=== PATIENT | female | born 1975 | race African-American/Black ===

== ENCOUNTER 2018-07-09 19:54 | Inpatient (IN) | payer OTHER ==
[2018-07-10] MEDS ORDERED: HYDROCODONE/APAP (5/325) TAB PO
[2018-07-10] MEDS ORDERED: ALBUTEROL/IPRATROPIUM (NEB) 3 ML AMP HHN
[2018-07-10] MEDS ORDERED: ONDANSETRON 4 MG INJ IV
[2018-07-10] MEDS ORDERED: NACL 0.9% 3 ML SYG IV
[2018-07-10] MEDS ORDERED: GLUCOSE GEL 15 GRAM TUBE PO ×2 (04:00)
[2018-07-10] MEDS ORDERED: GLUCOSE GEL 15 GRAM TUBE BUCCAL (04:00)
[2018-07-10] MEDS ORDERED: DEXTROSE 50% 50 ML SYRINGE IV ×2 (04:00)
[2018-07-10] MEDS ORDERED: GLUCAGON 1 MG INJ IM (04:00)
[2018-07-10 06:08] LABS: ADD MAN DIFF? NO; BASOPHILS % 0.4 % (0.0-2.0); EOSINOPHILS # 0.3 10^3/ul (0.0-0.5); EOSINOPHILS % 2.8 % (0.0-7.0); HEMATOCRIT 38.1 % (37.0-47.0); HEMOGLOBIN 11.5 g/dl (12.0-16.0); LYMPHOCYTES # 1.3 10^3/ul (0.8-2.9); LYMPHOCYTES % 13.4 % (15.0-51.0); MEAN CORPUSCULAR HEMOGLOBIN 27.4 pg (29.0-33.0); MEAN CORPUSCULAR HGB CONC 30.2 g/dl (32.0-37.0); MEAN CORPUSCULAR VOLUME 90.7 fl (82.0-101.0); MEAN PLATELET VOLUME 11.2 fl (7.4-10.4); MONOCYTES % 11.1 % (0.0-11.0); NEUTROPHIL # 6.7 10^3/ul (1.6-7.5); NEUTROPHILS % 71.8 % (39.0-77.0); PLATELET COUNT 189 10^3/UL (140-415); RED CELL DISTRIBUTION WIDTH 15.2 % (11.5-14.5)
[2018-07-10 06:08] LABS: WHITE BLOOD COUNT 9.3 10^3/ul (4.8-10.8)
[2018-07-10 06:51] LABS: ALANINE AMINOTRANSFERASE 29 IU/L (13-69); ALBUMIN 3.2 g/dl (3.3-4.9); ALBUMIN/GLOBULIN RATIO 1.18; ALKALINE PHOSPHATASE 60 IU/L (42-121); ASPARTATE AMINO TRANSFERASE 23 IU/L (15-46); BILIRUBIN,INDIRECT 0.5 mg/dl (0-1.1); BILIRUBIN,TOTAL 0.5 mg/dl (0.2-1.3); BLOOD UREA NITROGEN 24 mg/dl (7-20); CALCIUM 8.9 mg/dl (8.4-10.2); CHLORIDE 95 mmol/L (97-110); CREATININE 1.01 mg/dl (0.44-1.00); Estimated GFR > 60 mL/min (>60); GLUCOSE 107 mg/dl (70-220); POTASSIUM 3.7 mmol/L (3.5-5.1); SODIUM 141 mmol/L (135-144); TOTAL PROTEIN 5.9 g/dl (6.1-8.1)
[2018-07-10 06:59] LABS: ANION GAP 6 (5-13)
[2018-07-10 07:06] LABS: CARBON DIOXIDE 40 mmol/L (21-31)
[2018-07-10 07:41] LABS: HEMOGLOBIN A1C 6.1 % (0-5.9)
[2018-07-10] MEDS: metFORMIN 500 MG TAB PO (07:57)
[2018-07-10] MEDS ORDERED: HEPARIN 5,000 UNIT/0.5 ML VIAL ×2 (08:14→20:11)
[2018-07-10] MEDS: LISINOPRIL 20 MG TAB PO (08:45)
[2018-07-10] MEDS: HEPARIN 5,000 UNIT/1 ML VIAL SC ×2 (08:49→20:25)
[2018-07-10] MEDS: MAGNESIUM OXIDE 400 MG TAB PO (20:15)
[2018-07-10] MEDS: ATORVASTATIN 10 MG TAB PO (20:15)
[2018-07-10] MEDS ORDERED: NON-FORMULARY/PATIENT OWN MED (Lovastatin 40 MG) PO (21:00)
[2018-07-11 08:11] LABS: ADD MAN DIFF? NO
[2018-07-11 08:18] LABS: ABNORMAL IP MESSAGE 1; BASOPHILS % 0.5 % (0.0-2.0); EOSINOPHILS # 0.3 10^3/ul (0.0-0.5); HEMATOCRIT 38.7 % (37.0-47.0); LYMPHOCYTES # 0.9 10^3/ul (0.8-2.9); LYMPHOCYTES % 9.9 % (15.0-51.0); MEAN CORPUSCULAR HEMOGLOBIN 26.6 pg (29.0-33.0); MEAN CORPUSCULAR HGB CONC 28.4 g/dl (32.0-37.0); MEAN CORPUSCULAR VOLUME 93.7 fl (82.0-101.0); MEAN PLATELET VOLUME 11.6 fl (7.4-10.4); MONOCYTES % 11.4 % (0.0-11.0); NEUTROPHIL # 6.5 10^3/ul (1.6-7.5); NEUTROPHILS % 74.9 % (39.0-77.0); PLATELET COUNT 189 10^3/UL (140-415); RED BLOOD COUNT 4.13 10^6/ul (4.20-5.40); RED CELL DISTRIBUTION WIDTH 14.9 % (11.5-14.5)
[2018-07-11 08:18] LABS: WHITE BLOOD COUNT 8.7 10^3/ul (4.8-10.8)
[2018-07-11] MEDS ORDERED: HEPARIN 5,000 UNIT/0.5 ML VIAL ×2 (08:22→19:54)
[2018-07-11] MEDS: LISINOPRIL 20 MG TAB PO (08:26)
[2018-07-11] MEDS: MAGNESIUM OXIDE 400 MG TAB PO ×2 (08:26→20:07)
[2018-07-11] MEDS: ASPIRIN (EC) 81 MG TAB PO (08:26)
[2018-07-11 08:27] LABS: POSITIVE DIFF @See below
[2018-07-11] MEDS: HEPARIN 5,000 UNIT/1 ML VIAL SC ×2 (08:31→20:11)
[2018-07-11 08:50] LABS: TROPONIN-I 0.024 ng/ml (0.000-0.120)
[2018-07-11 08:51] LABS: BLOOD UREA NITROGEN 25 mg/dl (7-20); CALCIUM 9.2 mg/dl (8.4-10.2); CHLORIDE 96 mmol/L (97-110); CREATININE 0.98 mg/dl (0.44-1.00); Estimated GFR > 60 mL/min (>60); GLUCOSE 91 mg/dl (70-220); INR 1.08; MAGNESIUM 1.9 mg/dl (1.7-2.5); PHOSPHORUS 4.3 mg/dl (2.5-4.9); POTASSIUM 4.3 mmol/L (3.5-5.1); PROTIME 14.1 Sec (11.9-14.9); PT RATIO 1.1; SODIUM 143 mmol/L (135-144)
[2018-07-11 08:55] LABS: CHOLESTEROL 117 mg/dl (100-200)
[2018-07-11 08:55] LABS: CHOL/HDL RATIO 4.5 RATIO; HDL CHOLESTEROL 26 mg/dl (34-88); LDL CHOLESTEROL,CALCULATED 77 mg/dl; TRIGLYCERIDES 72 mg/dl (0-149)
[2018-07-11] MEDS ORDERED: ALBUTEROL HFA 8 GM INHALER INH (09:00)
[2018-07-11 09:58] LABS: ANION GAP 8 (5-13)
[2018-07-11 10:02] LABS: CARBON DIOXIDE 39 mmol/L (21-31)
[2018-07-11] MEDS: FUROSEMIDE 20 MG INJ IV (18:24)
[2018-07-11] MEDS: ATORVASTATIN 10 MG TAB PO (20:07)
[2018-07-12] MEDS: FUROSEMIDE 20 MG INJ IV ×2 (05:40→18:14)
[2018-07-12 07:10] LABS: ABNORMAL IP MESSAGE 1; ADD MAN DIFF? NO; BASOPHILS % 0.4 % (0.0-2.0); EOSINOPHILS # 0.2 10^3/ul (0.0-0.5); EOSINOPHILS % 2.3 % (0.0-7.0); HEMATOCRIT 38.8 % (37.0-47.0); HEMOGLOBIN 11.1 g/dl (12.0-16.0); LYMPHOCYTES # 0.9 10^3/ul (0.8-2.9); LYMPHOCYTES % 10.4 % (15.0-51.0); MEAN CORPUSCULAR HEMOGLOBIN 26.7 pg (29.0-33.0); MEAN CORPUSCULAR HGB CONC 28.6 g/dl (32.0-37.0); MEAN CORPUSCULAR VOLUME 93.5 fl (82.0-101.0); MEAN PLATELET VOLUME 11.3 fl (7.4-10.4); MONOCYTES % 11.2 % (0.0-11.0); NEUTROPHIL # 6.8 10^3/ul (1.6-7.5); NEUTROPHILS % 75.5 % (39.0-77.0); PLATELET COUNT 157 10^3/UL (140-415); RED BLOOD COUNT 4.15 10^6/ul (4.20-5.40)
[2018-07-12 07:15] LABS: POSITIVE DIFF @See below
[2018-07-12 07:26] LABS: Allen Test ACCEPTAB; Arterial Base Excess 11.8 mmol/L (-3.0-3); Arterial COHb 1.3 % (0.0-3.0); Arterial Fraction of Oxyhgb 95.4 % (93.0-99.0); Arterial HCO3 41.3 mmol/L (22.0-26.0); Arterial MetHb 0.4 % (0.0-1.5); Arterial pCO2 83.2 mmhg (35-45); MODE NASAL CANNULA; Site Right Radial
[2018-07-12 07:44] LABS: BLOOD UREA NITROGEN 25 mg/dl (7-20); CHLORIDE 95 mmol/L (97-110); CREATININE 0.93 mg/dl (0.44-1.00); Estimated GFR > 60 mL/min (>60); GLUCOSE 103 mg/dl (70-220); POTASSIUM 4.2 mmol/L (3.5-5.1); SODIUM 144 mmol/L (135-144)
[2018-07-12 07:46] LABS: PHOSPHORUS 4.1 mg/dl (2.5-4.9)
[2018-07-12 07:46] LABS: MAGNESIUM 2.1 mg/dl (1.7-2.5)
[2018-07-12] MEDS ORDERED: HEPARIN 5,000 UNIT/0.5 ML VIAL ×2 (08:06→19:50)
[2018-07-12 08:08] LABS: ANION GAP 6 (5-13)
[2018-07-12 08:10] LABS: CARBON DIOXIDE 43 mmol/L (21-31)
[2018-07-12] MEDS: THIAMINE 100 MG TAB PO (08:16)
[2018-07-12] MEDS: MAGNESIUM OXIDE 400 MG TAB PO ×2 (08:16→20:23)
[2018-07-12] MEDS: LISINOPRIL 20 MG TAB PO (08:16)
[2018-07-12] MEDS: ASPIRIN (EC) 81 MG TAB PO (08:16)
[2018-07-12] MEDS: HEPARIN 5,000 UNIT/1 ML VIAL SC ×2 (08:21→20:28)
[2018-07-12 08:58] LABS: ANISOCYTOSIS 3+ (0-0); BAND NEUTROPHILS #M 0.5 10^3/ul (0.0-0.6); BAND NEUTROPHILS % (M) 6 % (0-4); BASOPHILS % (M) 1 % (0-2); EOSINOPHILS % (M) 3 % (0-7); HYPOCHROMASIA 3+ (0-0); LYMPHOCYTES #M 0.9 10^3/ul (0.8-2.9); LYMPHOCYTES % (M) 10 % (15-51); METAMYELOCYTES %M 1 % (0-0); MICROCYTOSIS 3+ (0-0); MONOCYTE #M 0.5 10^3/ul (0.3-0.9); MONOCYTES % (M) 6 % (0-11); PLATELET ESTIMATE NORMAL; POIKILOCYTOSIS 3+ (0-0); POLYCHROMASIA 1+ (0-0); SEG NEUT #M 6.6 10^3/ul (1.6-7.5); SEGMENTED NEUTROPHILS (M) % 73 % (39-77); SMUDGE%M 2 % (0-0)
[2018-07-12] MEDS: ATORVASTATIN 10 MG TAB PO (20:19)
[2018-07-12 23:59] LABS: AADO2 Arterial 84.1 mmHg (7.0-24.0); Allen Test ACCEPTAB; Arterial Base Excess 14.5 mmol/L (-3.0-3); Arterial COHb 0.4 % (0.0-3.0); Arterial Fraction of Oxyhgb 96.4 % (93.0-99.0); Arterial HCO3 44.4 mmol/L (22.0-26.0); Arterial MetHb 0.2 % (0.0-1.5); Arterial pCO2 90.1 mmhg (35-45); Blood Gas IEPAP 20/5; Blood Gas PS 15; MODE MASK - BIPAP; Site Right Radial
[2018-07-13] MEDS: FUROSEMIDE 20 MG INJ IV ×2 (05:22→18:34)
[2018-07-13 08:49] LABS: Allen Test ACCEPTAB; Arterial Base Excess 12.5 mmol/L (-3.0-3); Arterial Blood Gas Oxygen Sat 94.3 mmHG (95.0-98.0); Arterial COHb 0.7 % (0.0-3.0); Arterial Fraction of Oxyhgb 93.5 % (93.0-99.0); Arterial HCO3 42.2 mmol/L (22.0-26.0); Arterial MetHb 0.1 % (0.0-1.5); Blood Gas IEPAP 20/5; Blood Gas PS 15; MODE MASK - BIPAP; Site Right Radial
[2018-07-13] MEDS ORDERED: HEPARIN 5,000 UNIT/0.5 ML VIAL ×2 (09:24→20:16)
[2018-07-13] MEDS: ASPIRIN (EC) 81 MG TAB PO (09:28)
[2018-07-13] MEDS: THIAMINE 100 MG TAB PO (09:28)
[2018-07-13] MEDS: MAGNESIUM OXIDE 400 MG TAB PO ×2 (09:29→20:21)
[2018-07-13] MEDS: LISINOPRIL 20 MG TAB PO (09:29)
[2018-07-13 09:30] LABS: BLOOD UREA NITROGEN 23 mg/dl (7-20); CHLORIDE 92 mmol/L (97-110); CREATININE 0.86 mg/dl (0.44-1.00); Estimated GFR > 60 mL/min (>60); GLUCOSE 86 mg/dl (70-220); MAGNESIUM 2.1 mg/dl (1.7-2.5); POTASSIUM 4.2 mmol/L (3.5-5.1); SODIUM 142 mmol/L (135-144)
[2018-07-13 09:39] LABS: ANION GAP 5 (5-13); CARBON DIOXIDE 45 mmol/L (21-31)
[2018-07-13 09:41] LABS: FREE T4 (FREE THYROXINE) 1.09 ng/dl (0.64-1.79)
[2018-07-13] MEDS: HEPARIN 5,000 UNIT/1 ML VIAL SC ×2 (09:44→20:31)
[2018-07-13 09:54] LABS: TRIIODOTHYRONINE 0.49 ng/ml (0.97-1.69)
[2018-07-13] MEDS: ACETAMINOPHEN 325 MG TAB PO (15:24)
[2018-07-13] MEDS: ATORVASTATIN 10 MG TAB PO (20:20)
[2018-07-14] MEDS: FUROSEMIDE 20 MG INJ IV ×2 (05:36→18:23)
[2018-07-14 07:21] LABS: ADD MAN DIFF? NO
[2018-07-14 07:26] LABS: WHITE BLOOD COUNT 8.4 10^3/ul (4.8-10.8)
[2018-07-14 07:26] LABS: ABNORMAL IP MESSAGE 1; BASOPHILS % 0.4 % (0.0-2.0); EOSINOPHILS # 0.3 10^3/ul (0.0-0.5); EOSINOPHILS % 3.2 % (0.0-7.0); HEMATOCRIT 38.5 % (37.0-47.0); LYMPHOCYTES % 11.8 % (15.0-51.0); MEAN CORPUSCULAR HGB CONC 28.6 g/dl (32.0-37.0); MEAN CORPUSCULAR VOLUME 94.4 fl (82.0-101.0); MEAN PLATELET VOLUME 11.3 fl (7.4-10.4); MONOCYTE # 1.1 10^3/ul (0.3-0.9); MONOCYTES % 12.8 % (0.0-11.0); NEUTROPHILS % 71.4 % (39.0-77.0); PLATELET COUNT 171 10^3/UL (140-415); RED BLOOD COUNT 4.08 10^6/ul (4.20-5.40); RED CELL DISTRIBUTION WIDTH 14.6 % (11.5-14.5)
[2018-07-14 07:29] LABS: POSITIVE DIFF @See below
[2018-07-14 07:49] LABS: MAGNESIUM 2.2 mg/dl (1.7-2.5)
[2018-07-14 07:49] LABS: PHOSPHORUS 3.8 mg/dl (2.5-4.9)
[2018-07-14 08:01] LABS: BLOOD UREA NITROGEN 21 mg/dl (7-20); CHLORIDE 93 mmol/L (97-110); CREATININE 0.84 mg/dl (0.44-1.00); Estimated GFR > 60 mL/min (>60); GLUCOSE 114 mg/dl (70-220); POTASSIUM 4.3 mmol/L (3.5-5.1); SODIUM 145 mmol/L (135-144)
[2018-07-14 08:14] LABS: ANION GAP 8 (5-13); CARBON DIOXIDE 44 mmol/L (21-31)
[2018-07-14] MEDS ORDERED: HEPARIN 5,000 UNIT/0.5 ML VIAL ×2 (08:25→20:58)
[2018-07-14] MEDS: ALTEPLASE (CATHFLO) 2 MG INJ CATHETER (08:34)
[2018-07-14] MEDS: LISINOPRIL 20 MG TAB PO (08:35)
[2018-07-14] MEDS: MAGNESIUM OXIDE 400 MG TAB PO ×2 (08:36→21:22)
[2018-07-14] MEDS: ASPIRIN (EC) 81 MG TAB PO (08:36)
[2018-07-14] MEDS: THIAMINE 100 MG TAB PO (08:36)
[2018-07-14] MEDS: HEPARIN 5,000 UNIT/1 ML VIAL SC ×2 (08:48→21:25)
[2018-07-14] MEDS: ATORVASTATIN 10 MG TAB PO (21:22)
[2018-07-15] MEDS: FUROSEMIDE 20 MG INJ IV ×2 (06:31→18:51)
[2018-07-15 08:29] LABS: ADD MAN DIFF? NO
[2018-07-15 08:38] LABS: WHITE BLOOD COUNT 8.1 10^3/ul (4.8-10.8)
[2018-07-15 08:38] LABS: ABNORMAL IP MESSAGE 1; BASOPHIL # 0.1 10^3/ul (0.0-0.1); BASOPHILS % 0.7 % (0.0-2.0); EOSINOPHILS # 0.3 10^3/ul (0.0-0.5); EOSINOPHILS % 3.7 % (0.0-7.0); HEMATOCRIT 39.3 % (37.0-47.0); HEMOGLOBIN 10.9 g/dl (12.0-16.0); LYMPHOCYTES # 1.2 10^3/ul (0.8-2.9); LYMPHOCYTES % 14.6 % (15.0-51.0); MEAN CORPUSCULAR HEMOGLOBIN 26.3 pg (29.0-33.0); MEAN CORPUSCULAR HGB CONC 27.7 g/dl (32.0-37.0); MEAN CORPUSCULAR VOLUME 94.9 fl (82.0-101.0); MEAN PLATELET VOLUME 11.6 fl (7.4-10.4); MONOCYTES % 12.8 % (0.0-11.0); NEUTROPHIL # 5.5 10^3/ul (1.6-7.5); PLATELET COUNT 175 10^3/UL (140-415); RED BLOOD COUNT 4.14 10^6/ul (4.20-5.40); RED CELL DISTRIBUTION WIDTH 14.6 % (11.5-14.5)
[2018-07-15 08:56] LABS: POSITIVE DIFF @See below
[2018-07-15] MEDS ORDERED: HEPARIN 5,000 UNIT/0.5 ML VIAL ×2 (08:56→21:39)
[2018-07-15 09:00] LABS: MAGNESIUM 2.3 mg/dl (1.7-2.5)
[2018-07-15 09:00] LABS: PHOSPHORUS 3.6 mg/dl (2.5-4.9)
[2018-07-15] MEDS: ASPIRIN (EC) 81 MG TAB PO (09:06)
[2018-07-15] MEDS: MAGNESIUM OXIDE 400 MG TAB PO ×2 (09:06→21:44)
[2018-07-15] MEDS: LISINOPRIL 20 MG TAB PO (09:06)
[2018-07-15] MEDS: THIAMINE 100 MG TAB PO (09:06)
[2018-07-15] MEDS: HEPARIN 5,000 UNIT/1 ML VIAL SC ×2 (09:16→21:44)
[2018-07-15 09:23] LABS: BLOOD UREA NITROGEN 20 mg/dl (7-20); CALCIUM 9.3 mg/dl (8.4-10.2); CHLORIDE 91 mmol/L (97-110); CREATININE 0.84 mg/dl (0.44-1.00); Estimated GFR > 60 mL/min (>60); GLUCOSE 96 mg/dl (70-220); POTASSIUM 4.3 mmol/L (3.5-5.1); SODIUM 142 mmol/L (135-144)
[2018-07-15 09:41] LABS: ANION GAP 1 (5-13)
[2018-07-15 09:42] LABS: CARBON DIOXIDE 50 mmol/L (21-31)
[2018-07-15 13:11] LABS: AADO2 Arterial 23.5 mmHg (7.0-24.0); Allen Test ACCEPTAB; Arterial COHb 1.1 % (0.0-3.0); Arterial Fraction of Oxyhgb 80.1 % (93.0-99.0); Arterial HCO3 42.6 mmol/L (22.0-26.0); Arterial MetHb 0 % (0.0-1.5); Arterial pCO2 68.7 mmhg (35-45); MODE ROOM AIR; Site Right Radial
[2018-07-15] MEDS ORDERED: METOPROLOL 5 MG INJ (15:41)
[2018-07-15] MEDS: ATORVASTATIN 10 MG TAB PO (21:44)
[2018-07-15] MEDS: SOD CHLORIDE 0.9% 100 ML (22:58)
[2018-07-15] MEDS: IOHEXOL 100 ML (22:59)
[2018-07-15] MEDS: IOHEXOL 350MG/ML 50 ML BTL (22:59)
[2018-07-16 06:11] LABS: ADD MAN DIFF? NO
[2018-07-16 06:17] LABS: ABNORMAL IP MESSAGE 1; BASOPHILS % 0.6 % (0.0-2.0); EOSINOPHILS # 0.3 10^3/ul (0.0-0.5); EOSINOPHILS % 4.7 % (0.0-7.0); HEMATOCRIT 38.1 % (37.0-47.0); HEMOGLOBIN 10.6 g/dl (12.0-16.0); LYMPHOCYTES # 1.2 10^3/ul (0.8-2.9); LYMPHOCYTES % 17.5 % (15.0-51.0); MEAN CORPUSCULAR HEMOGLOBIN 26.4 pg (29.0-33.0); MEAN CORPUSCULAR HGB CONC 27.8 g/dl (32.0-37.0); MEAN PLATELET VOLUME 11.4 fl (7.4-10.4); MONOCYTE # 0.9 10^3/ul (0.3-0.9); MONOCYTES % 12.6 % (0.0-11.0); NEUTROPHIL # 4.4 10^3/ul (1.6-7.5); NEUTROPHILS % 64.5 % (39.0-77.0); PLATELET COUNT 149 10^3/UL (140-415); RED BLOOD COUNT 4.01 10^6/ul (4.20-5.40); RED CELL DISTRIBUTION WIDTH 14.6 % (11.5-14.5)
[2018-07-16 06:17] LABS: WHITE BLOOD COUNT 6.8 10^3/ul (4.8-10.8)
[2018-07-16 06:29] LABS: POSITIVE DIFF @See below
[2018-07-16 06:34] LABS: PHOSPHORUS 3.8 mg/dl (2.5-4.9)
[2018-07-16 06:34] LABS: MAGNESIUM 2.2 mg/dl (1.7-2.5)
[2018-07-16] MEDS: FUROSEMIDE 20 MG INJ IV ×2 (06:37→17:46)
[2018-07-16 06:41] LABS: BLOOD UREA NITROGEN 18 mg/dl (7-20); CALCIUM 8.9 mg/dl (8.4-10.2); CHLORIDE 94 mmol/L (97-110); CREATININE 0.74 mg/dl (0.44-1.00); Estimated GFR > 60 mL/min (>60); GLUCOSE 97 mg/dl (70-220); POTASSIUM 4.1 mmol/L (3.5-5.1); SODIUM 143 mmol/L (135-144)
[2018-07-16 06:56] LABS: ANION GAP 5 (5-13); CARBON DIOXIDE 44 mmol/L (21-31)
[2018-07-16] MEDS ORDERED: HEPARIN 5,000 UNIT/0.5 ML VIAL ×2 (09:19→20:04)
[2018-07-16] MEDS: LISINOPRIL 20 MG TAB PO (09:24)
[2018-07-16] MEDS: THIAMINE 100 MG TAB PO (09:24)
[2018-07-16] MEDS: ASPIRIN (EC) 81 MG TAB PO (09:24)
[2018-07-16] MEDS: MAGNESIUM OXIDE 400 MG TAB PO ×2 (09:24→20:42)
[2018-07-16] MEDS: HEPARIN 5,000 UNIT/1 ML VIAL SC ×2 (09:30→20:52)
[2018-07-16 11:28] LABS: ADD UMIC YES; UR ASCORBIC ACID NEGATIVE (NEGATIVE); UR BILIRUBIN (Dip) NEGATIVE (NEGATIVE); UR BLOOD (Dip) NEGATIVE (NEGATIVE); UR CLARITY CLEAR (CLEAR); UR COLOR YELLOW (YELLOW); UR GLUCOSE (Dip) NEGATIVE (NEGATIVE); UR KETONES (Dip) NEGATIVE (NEGATIVE); UR LEUKOCYTE ESTERASE (Dip) NEGATIVE Leu/ul (NEGATIVE); UR MUCUS FEW /HPF (NONE SEEN); UR NITRITE (Dip) NEGATIVE (NEGATIVE); UR RBC 0 /HPF (0-5); UR SPECIFIC GRAVITY (Dip) 1.011 (1.003-1.030); UR TOTAL PROTEIN (Dip) 1+ mg/dl (NEGATIVE); UR UROBILINOGEN (Dip) NEGATIVE (NEGATIVE); UR WBC 1 /HPF (0-5)
[2018-07-16] MEDS: ATORVASTATIN 10 MG TAB PO (20:41)
[2018-07-17] MEDS: FUROSEMIDE 20 MG INJ IV ×2 (06:29→17:43)
[2018-07-17 06:37] LABS: ADD MAN DIFF? NO
[2018-07-17 06:47] LABS: ABNORMAL IP MESSAGE 1; BASOPHILS % 0.5 % (0.0-2.0); EOSINOPHILS # 0.3 10^3/ul (0.0-0.5); HEMATOCRIT 36.8 % (37.0-47.0); HEMOGLOBIN 10.5 g/dl (12.0-16.0); LYMPHOCYTES # 1.3 10^3/ul (0.8-2.9); LYMPHOCYTES % 16.5 % (15.0-51.0); MEAN CORPUSCULAR HEMOGLOBIN 26.7 pg (29.0-33.0); MEAN CORPUSCULAR HGB CONC 28.5 g/dl (32.0-37.0); MEAN CORPUSCULAR VOLUME 93.6 fl (82.0-101.0); MONOCYTE # 0.9 10^3/ul (0.3-0.9); MONOCYTES % 11.9 % (0.0-11.0); NEUTROPHIL # 5.3 10^3/ul (1.6-7.5); NEUTROPHILS % 66.7 % (39.0-77.0); PLATELET COUNT 152 10^3/UL (140-415); RED BLOOD COUNT 3.93 10^6/ul (4.20-5.40); RED CELL DISTRIBUTION WIDTH 14.6 % (11.5-14.5)
[2018-07-17 06:47] LABS: WHITE BLOOD COUNT 7.9 10^3/ul (4.8-10.8)
[2018-07-17 06:59] LABS: POSITIVE DIFF @See below
[2018-07-17 07:07] LABS: BLOOD UREA NITROGEN 15 mg/dl (7-20); CALCIUM 9.1 mg/dl (8.4-10.2); CHLORIDE 92 mmol/L (97-110); CREATININE 0.76 mg/dl (0.44-1.00); Estimated GFR > 60 mL/min (>60); GLUCOSE 88 mg/dl (70-220); INR 1.09; POTASSIUM 4.3 mmol/L (3.5-5.1); PROTIME 14.2 Sec (11.9-14.9); PT RATIO 1.1; SODIUM 140 mmol/L (135-144)
[2018-07-17 07:08] LABS: PARTIAL THROMBOPLASTIN TIME 35.2 Sec (23.0-35.0)
[2018-07-17 07:11] LABS: PHOSPHORUS 3.8 mg/dl (2.5-4.9)
[2018-07-17 07:22] LABS: ANION GAP 4 (5-13); CARBON DIOXIDE 44 mmol/L (21-31)
[2018-07-17] MEDS: LISINOPRIL 20 MG TAB PO (08:55)
[2018-07-17] MEDS: ASPIRIN (EC) 81 MG TAB PO (09:00)
[2018-07-17] MEDS: THIAMINE 100 MG TAB PO (09:00)
[2018-07-17] MEDS: MAGNESIUM OXIDE 400 MG TAB PO ×2 (09:00→20:43)
[2018-07-17] MEDS: hydrALAzine 20 MG INJ IV ×2 (13:03→17:13)
[2018-07-17] MEDS ORDERED: LIDOCAINE 2% (MDV) 20 ML INJ (14:27)
[2018-07-17] MEDS ORDERED: BUPIVACAINE 0.5% (SDV) 30 ML INJ (14:27)
[2018-07-17] MEDS ORDERED: IODIXANOL LOCM 50 ML BTL (14:27)
[2018-07-17] MEDS: POLYMYXIN/BACITRACIN 1L IRRIG IRR (14:30)
[2018-07-17] MEDS ORDERED: LIDOCAINE 2% (SDV) 5 ML INJ (15:06)
[2018-07-17] MEDS ORDERED: FENTAnyl 50 MCG/ML VIAL (15:06)
[2018-07-17] MEDS ORDERED: MIDAZOLAM 1 MG/ML 2 ML INJ (15:06)
[2018-07-17] MEDS ORDERED: EPHEDrine SULFATE 50 MG/5 ML SYG (15:07)
[2018-07-17] MEDS ORDERED: PROPOFOL 20 ML (15:07)
[2018-07-17] MEDS ORDERED: ALBUTEROL 0.083% (NEB) 2.5 MG/3 ML AMP HHN (16:00)
[2018-07-17] MEDS ORDERED: METOCLOPRAMIDE 10 MG INJ IV (16:00)
[2018-07-17] MEDS ORDERED: DIPHENHYDRAMINE 50 MG INJ IV (16:00)
[2018-07-17] MEDS ORDERED: ONDANSETRON 4 MG INJ IV (16:00)
[2018-07-17] MEDS ORDERED: hydrALAzine 20 MG INJ IV (16:00)
[2018-07-17] MEDS: VANCOMYCIN 1 GM 250 ML IVPB (17:08)
[2018-07-17] MEDS: ATORVASTATIN 10 MG TAB PO (20:42)
[2018-07-18] MEDS: FUROSEMIDE 20 MG INJ IV ×2 (05:12→18:34)
[2018-07-18] MEDS: hydrALAzine 20 MG INJ IV (05:13)
[2018-07-18] MEDS: ASPIRIN (EC) 81 MG TAB PO (08:15)
[2018-07-18] MEDS: MAGNESIUM OXIDE 400 MG TAB PO ×2 (08:16→20:16)
[2018-07-18] MEDS: LISINOPRIL 20 MG TAB PO (08:16)
[2018-07-18] MEDS: THIAMINE 100 MG TAB PO (08:16)
[2018-07-18 08:24] LABS: ADD MAN DIFF? NO
[2018-07-18 08:31] LABS: WHITE BLOOD COUNT 9.9 10^3/ul (4.8-10.8)
[2018-07-18 08:31] LABS: BASOPHILS % 0.4 % (0.0-2.0); EOSINOPHILS # 0.2 10^3/ul (0.0-0.5); EOSINOPHILS % 2.3 % (0.0-7.0); HEMATOCRIT 38.7 % (37.0-47.0); HEMOGLOBIN 11.4 g/dl (12.0-16.0); LYMPHOCYTES # 1.4 10^3/ul (0.8-2.9); LYMPHOCYTES % 14.3 % (15.0-51.0); MEAN CORPUSCULAR HEMOGLOBIN 26.6 pg (29.0-33.0); MEAN CORPUSCULAR HGB CONC 29.5 g/dl (32.0-37.0); MEAN CORPUSCULAR VOLUME 90.4 fl (82.0-101.0); MEAN PLATELET VOLUME 12.2 fl (7.4-10.4); MONOCYTE # 1.1 10^3/ul (0.3-0.9); NEUTROPHIL # 7.1 10^3/ul (1.6-7.5); NEUTROPHILS % 71.6 % (39.0-77.0); PLATELET COUNT 180 10^3/UL (140-415); RED BLOOD COUNT 4.28 10^6/ul (4.20-5.40); RED CELL DISTRIBUTION WIDTH 15.1 % (11.5-14.5)
[2018-07-18 08:55] LABS: PHOSPHORUS 3.6 mg/dl (2.5-4.9)
[2018-07-18 09:00] LABS: BLOOD UREA NITROGEN 12 mg/dl (7-20); CALCIUM 9.2 mg/dl (8.4-10.2); CHLORIDE 93 mmol/L (97-110); CREATININE 0.69 mg/dl (0.44-1.00); Estimated GFR > 60 mL/min (>60); GLUCOSE 89 mg/dl (70-220); POTASSIUM 4.1 mmol/L (3.5-5.1); SODIUM 139 mmol/L (135-144)
[2018-07-18 09:07] LABS: ANION GAP 6 (5-13); CARBON DIOXIDE 40 mmol/L (21-31)
[2018-07-18] MEDS ORDERED: hydrALAzine 20 MG INJ IV (11:00)
[2018-07-18] MEDS: ATORVASTATIN 10 MG TAB PO (20:16)
[2018-07-19] MEDS: FUROSEMIDE 20 MG INJ IV ×2 (05:48→17:23)
[2018-07-19] MEDS: ASPIRIN (EC) 81 MG TAB PO (08:55)
[2018-07-19] MEDS: MAGNESIUM OXIDE 400 MG TAB PO ×2 (08:55→21:14)
[2018-07-19] MEDS: THIAMINE 100 MG TAB PO (08:55)
[2018-07-19] MEDS: LISINOPRIL 20 MG TAB PO (08:55)
[2018-07-19] MEDS ORDERED: HEPARIN 5,000 UNIT/0.5 ML VIAL ×2 (12:26→21:06)
[2018-07-19] MEDS: HEPARIN 5,000 UNIT/1 ML VIAL SC ×2 (12:37→21:20)
[2018-07-19] MEDS: ATORVASTATIN 10 MG TAB PO (21:14)
[2018-07-20] MEDS: FUROSEMIDE 20 MG INJ IV ×2 (06:00→17:33)
[2018-07-20 06:21] LABS: ADD MAN DIFF? NO
[2018-07-20 06:29] LABS: BASOPHIL # 0.1 10^3/ul (0.0-0.1); BASOPHILS % 0.6 % (0.0-2.0); EOSINOPHILS # 0.3 10^3/ul (0.0-0.5); EOSINOPHILS % 2.8 % (0.0-7.0); HEMATOCRIT 38.5 % (37.0-47.0); HEMOGLOBIN 11.4 g/dl (12.0-16.0); LYMPHOCYTES # 1.5 10^3/ul (0.8-2.9); LYMPHOCYTES % 15.6 % (15.0-51.0); MEAN CORPUSCULAR HEMOGLOBIN 26.9 pg (29.0-33.0); MEAN CORPUSCULAR HGB CONC 29.6 g/dl (32.0-37.0); MEAN CORPUSCULAR VOLUME 90.8 fl (82.0-101.0); MEAN PLATELET VOLUME 12.2 fl (7.4-10.4); MONOCYTE # 1.1 10^3/ul (0.3-0.9); MONOCYTES % 11.4 % (0.0-11.0); NEUTROPHIL # 6.6 10^3/ul (1.6-7.5); NEUTROPHILS % 69.2 % (39.0-77.0); PLATELET COUNT 155 10^3/UL (140-415); RED BLOOD COUNT 4.24 10^6/ul (4.20-5.40); RED CELL DISTRIBUTION WIDTH 15.1 % (11.5-14.5)
[2018-07-20 06:29] LABS: WHITE BLOOD COUNT 9.6 10^3/ul (4.8-10.8)
[2018-07-20 06:44] LABS: ANION GAP 5 (5-13); BLOOD UREA NITROGEN 13 mg/dl (7-20); CALCIUM 9.1 mg/dl (8.4-10.2); CARBON DIOXIDE 39 mmol/L (21-31); CHLORIDE 96 mmol/L (97-110); CREATININE 0.75 mg/dl (0.44-1.00); Estimated GFR > 60 mL/min (>60); GLUCOSE 91 mg/dl (70-220); POTASSIUM 4.1 mmol/L (3.5-5.1); SODIUM 140 mmol/L (135-144)
[2018-07-20 07:09] LABS: MAGNESIUM 2.1 mg/dl (1.7-2.5)
[2018-07-20 07:09] LABS: PHOSPHORUS 4.1 mg/dl (2.5-4.9)
[2018-07-20] MEDS ORDERED: HEPARIN 5,000 UNIT/0.5 ML VIAL (08:28)
[2018-07-20] MEDS: LISINOPRIL 20 MG TAB PO (08:37)
[2018-07-20] MEDS: THIAMINE 100 MG TAB PO (08:37)
[2018-07-20] MEDS: ASPIRIN (EC) 81 MG TAB PO (08:37)
[2018-07-20] MEDS: MAGNESIUM OXIDE 400 MG TAB PO ×2 (08:37→20:08)
[2018-07-20] MEDS: HEPARIN 5,000 UNIT/1 ML VIAL SC ×2 (08:38→21:17)
[2018-07-20] MEDS: ATORVASTATIN 10 MG TAB PO (20:08)
[2018-07-20] MEDS: OXYMETAZOLINE 0.05% 15 ML NAS SPRAY NASAL (21:37)
[2018-07-21] MEDS ORDERED: FAMOTIDINE 20 MG TAB (04:30)
[2018-07-21] MEDS: OXYMETAZOLINE 0.05% 15 ML NAS SPRAY NASAL ×3 (06:17→17:19)
[2018-07-21] MEDS: FUROSEMIDE 20 MG TAB PO ×2 (06:20→17:19)
[2018-07-21] MEDS: THIAMINE 100 MG TAB PO (08:46)
[2018-07-21] MEDS: ASPIRIN (EC) 81 MG TAB PO (08:46)
[2018-07-21] MEDS: MAGNESIUM OXIDE 400 MG TAB PO ×2 (08:46→20:03)
[2018-07-21] MEDS: LISINOPRIL 20 MG TAB PO (08:46)
[2018-07-21] MEDS: HEPARIN 5,000 UNIT/1 ML VIAL SC ×2 (08:51→20:11)
[2018-07-21] MEDS: ATORVASTATIN 10 MG TAB PO (20:03)
[2018-07-22] MEDS: OXYMETAZOLINE 0.05% 15 ML NAS SPRAY NASAL ×3 (00:08→11:42)
[2018-07-22] MEDS: FUROSEMIDE 20 MG TAB PO (05:08)
[2018-07-22] MEDS: ASPIRIN (EC) 81 MG TAB PO (08:46)
[2018-07-22] MEDS: MAGNESIUM OXIDE 400 MG TAB PO (08:47)
[2018-07-22] MEDS: LISINOPRIL 20 MG TAB PO (08:47)
[2018-07-22] MEDS: THIAMINE 100 MG TAB PO (08:47)
[2018-07-22] MEDS: HEPARIN 5,000 UNIT/1 ML VIAL SC (08:53)
== END 2018-07-22 14:59 | disposition home health service (06) | DRG 308 ==
LOC: TEL 07-14 09:23
PROVIDERS: Hospitalist
PROC: 5A0945Z Assistance with Respiratory Ventilation, 24-96 Consecutive Hours (ICD-10-PCS; principal; 2018-07-12)
DX: I47.2 Ventricular tachycardia (principal); J96.21 Acute and chronic respiratory failure with hypoxia; I50.23 Acute on chronic systolic (congestive) heart failure; Z68.44 Body mass index [BMI] 60.0-69.9, adult; E66.2 Morbid (severe) obesity with alveolar hypoventilation; J96.12 Chronic respiratory failure with hypercapnia; I42.0 Dilated cardiomyopathy; I11.0 Hypertensive heart disease with heart failure; E11.9 Type 2 diabetes mellitus without complications; E78.5 Hyperlipidemia, unspecified; F31.9 Bipolar disorder, unspecified; G47.33 Obstructive sleep apnea (adult) (pediatric); E88.81 Metabolic syndrome and other insulin resistance; G40.909 Epilepsy, unspecified, not intractable, without status epilepticus
CPT/HCPCS: 36600; 71045; 80048; 80053; 80061; 81001; 82803; 82962; 83036; 83735; 84100; 84439; 84443; 84480; 84484; 85025; 85610; 85730; 87081; 87086; 93306; 94660; 97110; 97116; 97162; 97530